=== PATIENT | female | born 1985 | race Caucasian/White ===

== ENCOUNTER 2020-06-21 07:16 | Emergency (ER) | payer OTHER, SELFPAY ==
[2020-06-21 07:18] VITALS: BP 138/82; PULSE 90; RESP 20; TEMP 36.7; O2SAT 100
[2020-06-21] MEDS: LORazepam (*CRX) 1 MG TABLET PO (07:37)
[2020-06-21 08:51] LABS: Basophils Percent Auto 0.3 % (0.2-1.2); Hematocrit 40.3 % (37.0-47.0); Hemoglobin 14.1 g/dL (12.0-15.0); Immature Granulocyte Absolute 0.01 K/mm3 (0.00-0.031); Immature Granulocyte Percent A 0.3 % (0-0.5); Lymphocytes Absolute Auto 1.03 K/mm3 (0.9-3.2); Lymphocytes Percent Auto 31.4 % (18.3-44.2); Mean Corpuscular Hemoglobin 31.9 pg (26-34); Mean Corpuscular Volume 91.2 fl (80-100); Mean Platelet Volume 10.4 fl (7.4-10.4); Monocytes Absolute Auto 0.3 K/mm3 (0.1-0.6); Monocytes Percent Auto 10.4 % (2.6-8.5); Neutrophils Absolute Auto 1.9 K/mm3 (1.3-6.7); Neutrophils Percent Auto 57.6 % (45.5-73.1); Platelet Count Result 160 k/mm3 (150-375); Red Blood Count 4.42 M/mm3 (4.2-5.4); Red Cell Distribution Width 11.1 % (11.5-14.5); White Blood Count 3.3 K/mm3 (4.5-10.0)
[2020-06-21 09:09] LABS: Anion Gap 4 mmol/L (8-16); Blood Urea Nitrogen 7 mg/dL (7-17); Calcium 8.6 mg/dL (8.4-10.2); Carbon Dioxide 27 mmol/L (22-30); Chloride 105 mmol/L (98-107); Estimated CRCL calculation 115 ml/min; Estimated Glomerular Filt Rate > 60; Glucose 114 mg/dL (65-105); Potassium 3.8 mmol/L (3.4-5.0); Sodium 136 mmol/L (137-145)
[2020-06-21 09:45] VITALS: BP 132/75; PULSE 83; RESP 18; O2SAT 100
[2020-06-21 09:45] LABS: D Dimer 0.27 ug/mL (<0.48)
--- NOTE | 2020-06-21 10:45 | ED.ANXIETY ---
HPI - Anxiety General Chief Complaint: Anxiety Stated Complaint: PANIC ATTACKS Time Seen by Provider: 06/21/20 07:27 Source: patient and family Mode of arrival: ambulatory Limitations: no limitations History of Present Illness HPI narrative: 34-year-old with a history of anxiety disorder here with complaints of having anxiety symptoms since last few days. Patient states that she was started on BuSpar and Zoloft by her primary doctor 2 days ago. However she states that she is unable to sleep all night long and feeling extremely jittery and anxious. She denies any chest pain or shortness of breath. complaint: anxiety Onset (ago): day(s) (2) Severity: moderate Quality: constant Provoking factors: none known Exacerbating factors: nothing Associated symptoms: denies other symptoms Related Data Home Medications Medication Instructions Recorded Confirmed buspirone 5 mg PO HS 06/21/20 06/21/20 norgestimate-ethinyl estradiol 1 tablet PO DAILY 06/21/20 06/21/20 [Estarylla] sertraline 25 mg PO DAILY 06/21/20 06/21/20 Allergies Allergy/AdvReac Type Severity Reaction Status Date / Time No Known Allergies Allergy Verified 06/21/20 07:20 Review of Systems Review of Systems: All systems reviewed & are unremarkable except as noted in HPI and below Constitutional: Constitutional: Reports no additional constitutional complaints Eyes: Eyes: Reports no additional eye complaints ENT: Reports system reviewed and no additional complaints, except as documented Cardiovascular: Cardiovascular: Reports no additional cardiovascular complaints Respiratory: Respiratory: Reports no additional respiratory complaints Gastrointestinal: Gastrointestinal: Reports no additional gastrointestinal complaints Musculoskeletal: Musculoskeletal: Reports no additional musculoskeletal complaints Neurologic: Reports system reviewed and no additional complaints, except as documented Psychiatric: Psychiatric: Reports as per HPI [facility] Social History Social History Gender identity (if verbalized by the patient): Female Exam Narrative: Exam Narrative: GENERAL: Well-appearing, well-nourished, anxious HEAD: Normocephalic, atraumatic. EYES: PERRLA and EOMI. NECK: Supple. CHEST: Clear to auscultation. No respiratory distress. HEART: Regular rate and rhythm. No murmur heard. Normal peripheral pulses. EXTREMITIES: Normal range of motion. No edema. SKIN: Warm, dry, no rash. NEURO: No focal deficits. Alert and oriented x3. PSYCH: Anxious. Course Course Emergency Course: Patient was extremely anxious hyperventilating, did give her a milligram of Ativan, she started feeling better discussed lab work with her which was unremarkable. She does feel comfortable going home advised her to take Ativan as needed but continue her home medication, also recommended to do some relaxation techniques like deep breathing and meditation. Vital Signs Vital signs: Vital Signs Temperature 36.7 C 06/21/20 07:18 Pulse Rate 90 06/21/20 07:18 Respiratory Rate 20 06/21/20 07:18 Blood Pressure 138/82 06/21/20 07:18 Pulse Oximetry 100 06/21/20 07:18 Temperature 36.7 C 06/21/20 07:18 Pulse Rate 83 06/21/20 09:45 Respiratory Rate 18 06/21/20 09:45 Blood Pressure 132/75 06/21/20 09:45 Pulse Oximetry 100 06/21/20 09:45 MDM - Anxiety Lab Data Result diagrams: 06/21/20 08:46 06/21/20 08:46 Labs: Lab Results 06/21/20 06/21/20 06/21/20 Range/Units 08:46 08:46 08:46 WBC 3.3 L (4.5-10.0) K/mm3 RBC 4.42 (4.2-5.4) M/mm3 Hgb 14.1 (12.0-15.0) g/dL Hct 40.3 (37.0-47.0) % MCV 91.2 (80-100) fl MCH 31.9 (26-34) pg MCHC 35.0 (32-36) g/dl RDW 11.1 L (11.5-14.5) % Plt Count 160 (150-375) k/mm3 MPV 10.4 (7.4-10.4) fl Immature Gran % (Auto) 0.3 (0-0.5) % Neut % (Auto) 57.6 (45.5-73.1) % Lym
[2020-06-21 11:17] VITALS: BP 130/74; PULSE 82; RESP 18; O2SAT 100
[2020-06-22 00:20] LABS: SARS-CoV-2 RNA PCR Positive
== END 2020-06-21 11:18 | disposition home or self-care (01) ==
PROVIDERS: Emergency Provider Family Medicine; PCP Internal Medicine Infectious Disease
DX: F41.9 Anxiety disorder, unspecified (principal); Z79.899 Other long term (current) drug therapy
CPT/HCPCS: 36415; 80048; 85025; 85380; 99283; A9270; C9803; U0003; U0005